=== PATIENT | male | born 1965 ===

== ENCOUNTER 2017-12-12 20:31 | Emergency (ER) | payer MEDICAID, OTHER ==
[2017-12-12 21:05] VITALS: BP 121/78; PULSE 96; RESP 18; TEMP 97.9; O2SAT 96
[2017-12-12] MEDS ORDERED: Iohexol 240 (50 ml) PO ONE (21:46)
--- NOTE | 2017-12-12 22:03 | ED PDOC ---
HPI: Abdomen Time Seen by Provider: 12/12/17 21:27 Chief Complaint (Nursing): Abdominal Pain Chief Complaint (Provider): Right Groin Pain History Per: Patient History/Exam Limitations: no limitations Onset/Duration Of Symptoms: Other (4 years, worse over the last three days) Current Symptoms Are (Timing): Still Present Severity: Moderate Location Of Pain/Discomfort: Other (right inguinal) Quality Of Discomfort: "Pain" Associated Symptoms: denies: Fever, Chills, Nausea, Vomiting, Diarrhea, Loss Of Appetite, Back Pain, Chest Pain, Constipation, Urinary Symptoms Exacerbating Factors: None Alleviating Factors: None Last Bowel Movement: Today Additional History Per: Patient Additional Complaint(s): 52 y/o male complaining of right groin pain ongoing for four years, worse over the last three days. He was told in the past that he needed surgery, but was not able to get clearance as he had bradycardia. Patient has an appointment with a clinic later this month. No constipation, eating normally, no nausea, fever, chills, dysuria. He recently immigrated from [place] and is working to establish care. Past Medical History Vital Signs: Last Vital Signs Temp 97.9 F 12/12/17 20:59 Pulse 96 H 12/12/17 20:59 Resp 18 12/12/17 20:59 BP 121/78 12/12/17 20:59 Pulse Ox 96 12/13/17 03:25 - Medical History PMH: Cardia Arrhythmia Denies: Chronic Kidney Disease - Surgical History Surgical History: Tonsillectomy - Family History Family History: States: Unknown Family Hx - Social History Alcohol: None Drugs: Denies - Allergies Allergies/Adverse Reactions: Allergies Allergy/AdvReac Type Severity Reaction Status Date / Time No Known Allergies Allergy Verified 12/12/17 21:05 Review of Systems ROS Statement: Except As Marked, All Systems Reviewed And Found Negative Gastrointestinal: Positive for: Abdominal Pain Physical Exam - Reviewed Nursing Documentation Reviewed: Yes Vital Signs Reviewed: Yes - Physical Exam Appears: Positive for: Well, Non-toxic Head Exam: Positive for: ATRAUMATIC, NORMOCEPHALIC Skin: Positive for: Warm, Dry Eye Exam: Positive for: EOMI, PERRL ENT: Negative for: Pharyngeal Erythema, Tonsillar Exudate Neck: Positive for: Painless ROM, Supple Cardiovascular/Chest: Positive for: Regular Rate, Rhythm. Negative for: Murmur Respiratory: Positive for: Normal Breath Sounds. Negative for: Wheezing Gastrointestinal/Abdominal: Positive for: Soft, Hernia. Negative for: Tenderness, Mass, Distended, Guarding Male Genital Exam: Positive for: hernia mass (large right indirect inguinal hernia, soft. Not reducible, but able to compress to a very small size. Large right scrotal swelling. ). Negative for: lesions, urethral discharge Back: Positive for: Normal Inspection. Negative for: Decreased ROM Extremity: Positive for: Normal ROM. Negative for: Deformity Lymphatic: Negative for: Adenopathy Neurologic/Psych: Positive for: Alert. Negative for: Motor/Sensory Deficits - Laboratory Results Result Diagrams: 12/12/17 22:26 12/12/17 22:26 - ECG O2 Sat by Pulse Oximetry: 96 (RA) Pulse Ox Interpretation: Normal Medical Decision Making Medical Decision Making: Impression: Right Inguinal Hernia r/o obstruction or incarceration Plan: - Labs - CT Abdomen/Pelvis Scribe Attestation: Documented by Princess Keating, acting as a scribe for Trinidad Carranza MD. Provider Scribe Attestation: All medical record entries made by the Scribe were at my direction and personally dictated by me. I have reviewed the chart and agree that the record accurately reflects my personal performance of the history, physical exam, medical decision making, and the department course for this patient. I have also personally directed, reviewed, and agree with the discharge instructions and disposition. Disposition - Clinical Impression Clinical Impression: Inguinal hernia - Disposition Disposition: Transfer of Care Disposition Time: 00:40 Condition: STABLE Print Language: LATVIAN Patient Signed Over To: Nneka Bennett Handoff Comments: Pending CT reassessment and final ER disposition
[2017-12-12 22:31] LABS: BASO % 0.5 % (0.0-2.0); EOS # 0.2 K/uL (0.0-0.7); EOS % 2.5 % (0.0-4.0); HEMOGLOBIN 13.5 g/dL (12.0-18.0); LYMPH % 35.1 % (20.0-40.0); MEAN CELL VOLUME 90.9 fl (80.0-94.0); MEAN CORPUSCULAR HEMOGLOBIN 30.5 pg (27.0-31.0); MEAN CORPUSCULAR HGB CONC 33.5 g/dL (33.0-37.0); MEAN PLATELET VOLUME 9.1 fl (7.2-11.7); MONO # 0.8 K/uL (0.0-0.8); MONO % 9.2 % (0.0-10.0); NEUT # 4.6 K/uL (1.8-7.0); NEUT % 52.7 % (50.0-75.0); NRBC % 0.1 % (0.0-0.0); RBC 4.42 Mil/uL (4.40-5.90); RED CELL DISTRIBUTION WIDTH 14.1 % (11.5-14.5); WHITE BLOOD COUNT 8.7 K/uL (4.8-10.8)
[2017-12-12] MEDS ORDERED: Iohexol 240 (50 ml) ONE (22:36)
[2017-12-12 22:42] LABS: ALB/GLOB RATIO 1.1 (1.0-2.1); ALBUMIN 3.8 g/dL (3.5-5.0); ALT/SGPT 104 U/L (21-72); AST/SGOT 59 U/L (17-59); BLOOD UREA NITROGEN 24 mg/dl (9-20); CALCIUM 9.3 mg/dL (8.4-10.2); GFR AFRICAN-AMERICAN > 60; GFR NON-AFRICAN AMERICAN > 60
[2017-12-13] MEDS ORDERED: Sodium Chloride 0.9% 100 ML ONE (00:20)
[2017-12-13] MEDS ORDERED: Iohexol 300 100 ML IJ ONE (00:20)
--- NOTE | 2017-12-13 00:58 | ED PDOC ---
- Laboratory Results Result Diagrams: 12/12/17 22:26 12/12/17 22:26 - ECG O2 Sat by Pulse Oximetry: 96 (RA) Pulse Ox Interpretation: Normal Medical Decision Making Medical Decision Making: Time: 00:00 Patient was signed out to me by Dr. Carranza, pending CT Abdomen. CT Abdomen: FINDINGS: There are innumerable hypoattenuating lesions within the liver and kidneys some of which represent cysts and some of which are too small to accurately characterize. The largest cyst is located in the right kidney measuring 3.3 x 4.3 cm. The spleen is normal. The pancreas is normal. The gallbladder is distended. No gallstones. The colon is distended with stool consistent with mild constipation. A normal appendix is identified coronal image 70, axial through 122. There is an umbilical fat hernia. There is a large right inguinal fat hernia, the inferior extent of which is not imaged, however measures approximately 4.4 x 5.4 cm in axial dimensions. There is no bowel within the hernia. There is no significant stranding to suggest incarceration/strangulation. IMPRESSION: Right inguinal fat hernia without evidence of strangulation/incarceration. Nonacute findings as described in the body of the report. Thank you for allowing us to participate in the care of your patient 3:00 Patient shows significant signs of improvement in the ER and no complaints of pain. Labs and CT results were reviewed and discussed with patient. Upon provider evaluation patient is medically stable, and requires no further treatment in the ED at this time. Patient will be discharged home. Counseling was provided and all questions were answered regarding diagnosis and need for follow up with outpatient surgery. There is agreement to discharge plan. Return if symptoms persist or worsen. Provider referred patient to outpatient surgery. Scribe Attestation: Documented by Martha Peralta, acting as a scribe for Nneka Bennett MD. Provider Scribe Attestation: All medical record entries made by the Scribe were at my direction and personally dictated by me. I have reviewed the chart and agree that the record accurately reflects my personal performance of the history, physical exam, medical decision making, and the department course for this patient. I have also personally directed, reviewed, and agree with the discharge instructions and disposition. Disposition Doctor Will See Patient In The: Office Counseled Patient/Family Regarding: Studies Performed, Diagnosis, Need For Followup - Clinical Impression Clinical Impression: Inguinal hernia - POA Present On Arrival: None - Disposition Referrals: Desiree Briseno MD [Staff Provider] - Disposition: Routine/Home Disposition Time: 03:13 Additional Instructions: Return for worsening. Follow up with your PCP in 2-3 days. Instructions: Inguinal and Femoral (Groin) Hernias Forms: [facility] (Georgian) Print Language: [place]IZ[place]
--- NOTE | 2017-12-13 01:46 | CT ---
EXAM: CT Abdomen and Pelvis With Intravenous Contrast EXAM DATE/TIME: 12/12/2017 9:46 PM CLINICAL HISTORY: 52 years old, male; Condition or disease; Hernia; Complications not specified; Inguinal; Additional info: Right inguincal hernia R/O obstruction or incarcer TECHNIQUE: Axial computed tomography images of the abdomen and pelvis with intravenous contrast. All CT scans at this facility use one or more dose reduction techniques, viz.: automated exposure control; ma/kV adjustment per patient size (including targeted exams where dose is matched to indication; i.e. head); or iterative reconstruction technique. Coronal and sagittal reformatted images were created and reviewed. CONTRAST: 95 mL of Omnipaque administered intravenously. COMPARISON: No relevant prior studies available. FINDINGS: There are innumerable hypoattenuating lesions within the liver and kidneys some of which represent cysts and some of which are too small to accurately characterize. The largest cyst is located in the right kidney measuring 3.3 x 4.3 cm. The spleen is normal. The pancreas is normal. The gallbladder is distended. No gallstones. The colon is distended with stool consistent with mild constipation. A normal appendix is identified coronal image 70, axial [id number] through 122. There is an umbilical fat hernia. There is a large right inguinal fat hernia, the inferior extent of which is not imaged, however measures approximately 4.4 x 5.4 cm in axial dimensions. There is no bowel within the hernia. There is no significant stranding to suggest incarceration/strangulation. IMPRESSION: Right inguinal fat hernia without evidence of strangulation/incarceration. Nonacute findings as described in the body of the report.
== END 2017-12-13 03:43 | disposition home or self-care (01) ==
LOC: H.ER 20:31
DX: K40.90 Unilateral inguinal hernia, without obstruction or gangrene, not specified as recurrent (principal)
CPT/HCPCS: 74177; 80053; 80320; 83605; 85025; 99283; Q9966; Q9967